=== PATIENT | female | born 1970 | race Caucasian/White ===

== ENCOUNTER 2017-08-27 13:09 | Emergency (ER) | payer BC, OTHER ==
[~2017-08-27] VITALS: Ht 163.8 cm; Wt 81.5 kg
[2017-08-27 13:11] VITALS: TEMP 36.5; Ht 163.8 cm; Wt 81.5 kg
[2017-08-27] MEDS ORDERED: ACETAMINOPHEN 500 MG TAB PO STA (13:47)
[2017-08-27] MEDS ORDERED: KETOROLAC TROMETHAMINE 30 MG/ML VIAL IV STA (13:47)
[2017-08-27 13:55] VITALS: O2SAT 97
[2017-08-27] MEDS ORDERED: BCPILLS PO (13:55)
--- NOTE | 2017-08-27 13:55 | EMERGENCY ROOM VISIT NOTE ---
History First contact with patient: 13:25 Chief Complaint: CHEST PAIN Stated Complaint: CHEST PAIN,SOB History of Present Illness The patient is a 46 year old female who presents to the Emergency Room with complaints of midsternal chest pain she describes as a heaviness since this morning at 9 AM. She also feels short of breath. The pain is worse with deep inspiration and movement. The patient reports possibly having a cardiac history. She has had intermittent tachycardia. She had a stress test many years ago. She does report that it was positive. She denies ever having a cardiac catheterization. The patient underwent a biopsy of her breasts bilaterally around [facility]. She unfortunately developed mastitis following the procedure. She finished 2 rounds of antibiotics on 08/09. The patient takes oral contraceptives for regulation of her menstrual cycle. Review of Systems 10 system review performed and negative unless noted in HPI or below Past Medical/Surgical History Status post cholecystectomy Family History Father-coronary disease Social History Smoking Status: Never Smoker Current/Historical Medications Scheduled Control Pills ( Control Pills), 1 TAB PO DAILY Physical Exam Vital Signs Date Time Temp Pulse Resp B/P (MAP) Pulse Ox O2 Delivery O2 Flow Rate FiO2 08/27/17 17:20 100 16 152/97 97 Room Air 08/27/17 16:38 90 20 154/89 98 Room Air 08/27/17 15:00 92 20 154/88 98 08/27/17 14:12 86 19 152/85 98 Room Air 08/27/17 13:55 97 Room Air 08/27/17 13:36 Room Air 08/27/17 13:27 100 08/27/17 13:11 36.5 109 20 175/112 98 Room Air Physical Exam GENERAL: 46-year-old female, anxious in appearance,, SKIN: The skin was without rashes, erythema, edema, or bruising. There is no tenting of the skin. Capillary reflex less than 2 seconds. HEAD: Normocephalic atraumatic. MOUTH: Mucous membranes slightly dry NECK: Supple without nuchal rigidity. No lymphadenopathy. Cervical spine is nontender. No JVD. HEART: Regular rate and rhythm. No murmurs or rubs. LUNGS: Clear to auscultation bilaterally without wheezes, rales or rhonchi. No accessory muscle use. ABDOMEN: Positive bowel sounds x 4.Soft, nontender, without organomegaly. No guarding or rebound tenderness. MUSCULOSKELETAL: No muscle atrophy, erythema, or edema noted. Strength 5/5 throughout. NEURO: Patient was alert and oriented to person place and time. Normal sensation to touch. No focal neurological deficits. Medical Decision & Procedures ER Provider Diagnostic Interpretation: CTA chest IMPRESSION: 1. No evidence of acute pulmonary embolism 2. No evidence of focal pulmonary consolidation 3. No evidence of pneumothorax. Electronically signed by: Adolfo Mathis M.D. 08/27/2017 3:56 PM Dictated Date/Time: 08/27/2017 3:53 PM Laboratory Results 08/27/17 13:50 Red Blood Count 4.83, Mean Corpuscular Volume 87.0, Mean Corpuscular Hemoglobin 31.1, Mean Corpuscular Hemoglobin Concent 35.7, Mean Platelet Volume 9.9, Neutrophils (%) (Auto) 60.1, Lymphocytes (%) (Auto) 27.2, Monocytes (%) (Auto) 9.5, Eosinophils (%) (Auto) 2.6, Basophils (%) (Auto) 0.3, Neutrophils # (Auto) 4.22, Lymphocytes # (Auto) 1.91, Monocytes # (Auto) 0.67, Eosinophils # (Auto) 0.18, Basophils # (Auto) 0.02 08/27/17 13:50 Test 08/27/17 13:50 White Blood Count 7.02 K/uL (4.8-10.8) Red Blood Count 4.83 M/uL (4.2-5.4) Hemoglobin 15.0 g/dL (12.0-16.0) Hematocrit 42.0 % (37-47) Mean Corpuscular Volume 87.0 fL (80-100) Mean Corpuscular Hemoglobin 31.1 pg (25-34) Mean Corpuscular Hemoglobin Concent 35.7 g/dl (32-36) Platelet Count 289 K/uL (130-400) Mean Platelet Volume 9.9 fL (7.4-10.4) Neutrophils (%) (Auto) 60.1 % Lymphocytes (%) (Auto) 27.2 % Monocytes (%) (Auto) 9.5 % Eosinophils (%) (Auto) 2.6 % Basophils (%) (Auto) 0.3 % Neutrophils # (Auto) 4.22 K/uL (1.4-6.5) Lymphocytes # (Auto) 1.91 K/uL (1.2-3.4) Monocytes # (Auto) 0.67 K/uL (0.11-0.59) Eosinophils # (Auto) 0.18 K/uL (0-0.5) Basophils # (Auto) 0.02 K/uL (0-0.2) RDW Standard Deviation 39.4 fL (36.4-46.3) RDW Coefficient of Variation 12.3 % (11.5-14.5) Immature Granulocyte % (Auto) 0.3 % Immature Granulocyte # (Auto) 0.02 K/uL (0.00-0.02) Anion Gap 4.0 mmol/L (3-11) Est Creatinine Clear Calc Drug Dose 86.4 ml/min Estimated GFR () 95.9 Estimated GFR (Non- 82.8 BUN/Creatinine Ratio 16.1 (10-20) Calcium Level 9.6 mg/dl (8.5-10.1) Total Bilirubin 0.4 mg/dl (0.2-1) Aspartate Amino Transf (AST/SGOT) 16 U/L (15-37) Alanine Aminotransferase (ALT/SGPT) 32 U/L (12-78) Alkaline Phosphatase 62 U/L (45-117) Total Creatine Kinase 194 U/L (26-192) Creatine Kinase MB 5.7 ng/ml (0.5-3.6) Creatine Kinase MB Ratio 2.9 (0-3.0) Troponin I < 0.015 ng/ml (0-0.045) Total Protein 7.9 gm/dl (6.4-8.2) Albumin 4.3 gm/dl (3.4-5.0) Globulin 3.6 gm/dl (2.5-4.0) Albumin/Globulin Ratio 1.2 (0.9-2) Thyroid Stimulating Hormone (TSH) 3.130 uIu/ml (0.300-4.500) Human Chorionic Gonadotropin, Qual NEG (NEG) Medications Administered Medications (Trade) Dose Ordered Sig/Quynh Route Start Time Stop Time Status Last Admin Dose Admin Acetaminophen (Tylenol Tab) 1,000 mg NOW STAT PO 08/27/17 13:47 08/27/17 13:50 DC 08/27/17 14:46 1,000 MG Ketorolac Tromethamine (Toradol Inj) 30 mg NOW STAT IV 08/27/17 13:47 08/27/17 13:50 DC 08/27/17 14:46 30 MG Sodium Chloride 1,000 ml @ 999 mls/hr Q1H1M ONCE IV 08/27/17 14:00 08/27/17 15:00 DC 08/27/17 14:45 999 MLS/HR ECG Per My Interpretation Indication: chest pain Rate (beats per minute): 92 Rhythm: sinus with SA Findings: LBBB Comparison ECG Date: When compared to EKG from 2014, no significant change was noted ED Course Patient was seen and examined Vital signs including blood pressure were reviewed medications list was verified with patient Labs were obtained, and a saline lock was established The patient was medicated with Tylenol and Toradol Upon reassessment, the pain was improved. I thoroughly reviewed her workup. She voiced understanding. The EKGs and case were also reviewed with my supervising physician who is in agreement with my plan I reviewed discharge instructions the patient. They voiced understanding and had no further questions. Medical Decision Differential diagnosis: Acute myocardial infarction, cardiac arrhythmia, anemia , thyroid abnormality, pneumothorax, pneumonia, bronchitis, pericarditis, electrolyte imbalance, pulmonary embolus, musculoskeletal pain, This patient is a 46-year-old female presents to the emergency department with chest pain shortness of breath. On exam, she was anxious in appearance. She was moderately tachycardic. The patient reports a history of tachycardia. 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 Her EKG shows a left bundle branch block. I compared this EKG to an EKG from 2014. She had a left bundle branch block present on the prior EKG. Her troponin is negative. Do not suspect acute ischemia. A CT of the chest was performed to rule out pulmonary embolus. No abnormalities were found. The patient's heart rate improved with fluids. Her pain also improved with Toradol. I believe she is stable to be discharged home with close follow-up. The case was discussed with Dr. Summers from cardiology who kindly agreed to see her in the office. She will return with any worsening symptoms. This chart was completed in part utilizing [employer] Voice Recognition software. Attempts were made to minimize the grammatical errors, random word insertions, pronoun errors and incomplete sentences. Any formal questions or concerns about the content, text or information contained within the body of this dictation should be directly addressed to the provider for clarification. Consults Consulting Physician: Dr. Patiño Impression Primary Impression: Chest pain Departure Information Dispostion Home / Self-Care Condition GOOD Referrals Chelly Ba D.O. (PCP) Rasta Silvestre M.D. Patient Instructions My [facility] Additional Instructions You have been evaluated in the emergency department for chest pain. Your heart rate was also slightly high. There are no signs of a blood clot on the CAT scan of the chest that was performed in the emergency department. Please follow-up with cardiology. Call Dr. Silvestre tomorrow for a follow-up appointment. A number has been provided. Please try to stay well-hydrated. Increase fluids over the next few days. Avoid caffeine, alcohol and nicotine. Please do not hesitate to return to the emergency department with any new, worsening or concerning symptoms It was a pleasure participating in your care today Work Instructions Return To Work: 2 days School Instructions Return To School: 2 days
[2017-08-27] MEDS ORDERED: SODIUM CHLORIDE 0.9% 1000ML 1,000 ML IV ONE (14:00)
[2017-08-27] MEDS ORDERED: OPTIRAY 320 IV PRN (14:00)
[2017-08-27 14:02] LABS: BASO % 0.3 %; BASO ABS # 0.02 K/uL (0-0.2); EOS % 2.6 %; EOS ABS # 0.18 K/uL (0-0.5); IG# 0.02 K/uL (0.00-0.02); LYMPH % 27.2 %; LYMPH ABS # 1.91 K/uL (1.2-3.4); MEAN CORPUSCULAR HEMOGLOBIN 31.1 pg (25-34); MEAN CORPUSCULAR HGB CONC 35.7 g/dl (32-36); MEAN PLATELET VOLUME 9.9 fL (7.4-10.4); MONO % 9.5 %; MONO ABS # 0.67 K/uL (0.11-0.59); NEUT % 60.1 %; NEUT ABS # 4.22 K/uL (1.4-6.5); PLATELET COUNT 289 K/uL (130-400); RED CELL DISTRIBUTION WIDTH CV 12.3 % (11.5-14.5); RED CELL DISTRIBUTION WIDTH SD 39.4 fL (36.4-46.3); WHITE BLOOD COUNT 7.02 K/uL (4.8-10.8)
[2017-08-27 14:22] LABS: ALBUMIN 4.3 gm/dl (3.4-5.0); ALT/SGPT 32 U/L (12-78); AST/SGOT 16 U/L (15-37); BLOOD UREA NITROGEN 14 mg/dl (7-18); CALCIUM 9.6 mg/dl (8.5-10.1); CARBON DIOXIDE 27 mmol/L (21-32); CREATININE 0.84 mg/dl (0.60-1.20); GLUCOSE 87 mg/dl (70-99); POTASSIUM 3.5 mmol/L (3.5-5.1); SODIUM 138 mmol/L (136-145)
[2017-08-27 14:32] LABS: ALKALINE PHOSPHATASE 62 U/L (45-117); CKMB 5.7 ng/ml (0.5-3.6); TOTAL PROTEIN 7.9 gm/dl (6.4-8.2)
--- NOTE | 2017-08-27 15:57 | DIAGNOSTIC IMAGING REPORT ---
CT ANGIOGRAM OF THE CHEST CLINICAL HISTORY: Atypical chest pain and shortness of breath COMPARISON STUDY: No previous studies for comparison. TECHNIQUE: Following the IV administration of 93 mL of Optiray-320, CT angiogram of the thorax was performed from the thoracic inlet to the lung bases utilizing the pulmonary embolus protocol. Images are reviewed in the axial, sagittal, and coronal planes. IV contrast was administered without complication. MIP imaging was performed. A dose lowering technique was utilized adhering to the principles of ALARA. CT DOSE: 511.28 mGycm FINDINGS: No pathologically enlarged axillary mediastinal or hilar lymph nodes were visualized. There was no evidence of thoracic aortic dilatation. There were no pulmonary artery filling defects to indicate acute pulmonary embolism. No pleural effusions are visualized. There was no evidence of focal pulmonary consolidation. IMPRESSION: 1. No evidence of acute pulmonary embolism 2. No evidence of focal pulmonary consolidation 3. No evidence of pneumothorax. Electronically signed by: Adolfo Mathis M.D. 08/27/2017 3:56 PM Dictated Date/Time: 08/27/2017 3:53 PM
[2017-08-27 17:20] VITALS: BP 152/97; PULSE 100; O2SAT 97
== END 2017-08-27 17:54 | disposition home or self-care (01) ==
LOC: C.EDB 13:10
DX: R07.89 Other chest pain (principal); R00.0 Tachycardia, unspecified; R94.31 Abnormal electrocardiogram [ECG] [EKG]; I44.7 Left bundle-branch block, unspecified; R06.02 Shortness of breath; N61.0 Mastitis without abscess; Z79.3 Long term (current) use of hormonal contraceptives